=== PATIENT | female | born 1940 | race Caucasian/White ===

== ENCOUNTER 2019-05-06 09:36 | Inpatient (IN) ==
[2019-05-06 10:46] LABS: Basophils % 0.1 %; Hematocrit 38.8 % (35.3-44.9); Hemoglobin 11.9 g/dL (11.5-15.4); Immature Granulocytes % 0.5 % (0-4); Lymphocytes # 0.6 K/mcL (0.6-4.6); Lymphocytes % 2.5 %; Mean Corpuscular HGB Conc 30.7 g/dL (31.6-35.5); Mean Corpuscular Hemoglobin 28.5 pg (28.0-33.3); Mean Platelet Volume 9.4 fL (9.4-12.4); Monocytes # 1.4 K/mcL (0.0-1.3); Monocytes % 6.3 %; Neutrophils # 20.1 K/mcL (1.6-8.9); Platelet Count 258 K/mcL (140-400); Red Blood Count 4.17 M/mcL (3.82-4.97); Red Cell Distribution Width 13.8 % (11.5-14.5); Segmented Neutrophils % 90.6 %; White Blood Count 22.2 K/mcL (4.3-11.1)
[2019-05-06 10:47] LABS: INR 1.4; Prothrombin Time 15.5 Seconds (9.4-12.1)
[2019-05-06 10:49] LABS: Bilirubin,Urine Negative (Negative); Blood,Urine Trace-lysed (Negative); Clarity,Urine Clear (Clear); Color,Urine Yellow (Yellow); Glucose,Urine (UA) Normal (Normal); Ketones,Urine Negative (Negative); Leukocyte Esterase,Urine Small (Negative); Nitrite,Urine Negative (Negative); Protein,Urine 30 mg/dL (Neg-Trace); Specific Gravity,Urine 1.015 (1.010-1.025); Urobilinogen,Urine Normal (Normal)
[2019-05-06 10:50] LABS: Activated Partial Thrombo Time 27.7 Seconds (26.0-36.0)
[2019-05-06] MEDS ORDERED: levoFLOXacin 750 MG TABLET PO ONE (10:51)
[2019-05-06] MEDS ORDERED: Acetaminophen 325 MG TABLET PO ONE (10:52)
[2019-05-06] MEDS ORDERED: Ipratropium/Albuterol Neb 3 ML IH ONE (10:53)
[2019-05-06 11:01] LABS: Hyaline Casts,Urine Many per lpf (None-Few); RBC,Urine 0-3 per hpf (0-3); Squamous Epithelial Cell,Urine Many per lpf (None-Few)
[2019-05-06 11:04] LABS: Calcium 9.5 mg/dL (8.6-10.3); Potassium 4.7 mEq/L (3.5-5.1)
[2019-05-06] MEDS ORDERED: 0.9 % Sodium Chloride 500 ML IVC ONE (11:17)
[2019-05-06 11:49] LABS: VBG HCO3 42 mEq/L (21-27); VBG PCO2 66 mmHg (41-51); VBG PH 7.41 pH Units (7.32-7.42); VBG PO2 47 mmHg (25-50)
[2019-05-06] MEDS ORDERED: Azithromycin 500 MG in D5% in Water 250 ML IVPB ONE ×2 (12:05→12:59)
[2019-05-06] MEDS ORDERED: *HR* Dextrose 50 % in Water (Syg) 50 ML SYRINGE IVP PRN (12:59)
[2019-05-06] MEDS ORDERED: Acetaminophen 325 MG TABLET PO PRN (12:59)
[2019-05-06] MEDS ORDERED: Naloxone 0.4 MG/ML INJ IVP PRN (12:59)
[2019-05-06] MEDS ORDERED: Dextrose Gel 15 GM/37.5 ML TUBE PO PRN ×2 (12:59)
[2019-05-06] MEDS ORDERED: D5% in Water 1,000 ML IVC PRN (12:59)
[2019-05-06] MEDS: Ipratropium/Albuterol Neb 3 ML IH SCH ×3 (16:04→23:59)
[2019-05-06] MEDS: Torsemide 20 MG TABLET PO SCH (17:39)
[2019-05-06] MEDS: Insulin LISPRO 300 UNITS/3 ML VIAL SQ SCH ×2 (17:40→22:13)
[2019-05-06] MEDS ORDERED: Insulin DETEMIR 100 UNIT/ML X5UNITS SQ SCH (21:00)
[2019-05-06] MEDS: Insulin DETEMIR 100 UNIT/ML X5UNITS SQ SCH (22:17)
[2019-05-06] MEDS: Ascorbic Acid 500 MG TABLET PO SCH (22:23)
[2019-05-06] MEDS: Apixaban 5 MG TABLET PO SCH (22:23)
[2019-05-06] MEDS: Latanoprost 2.5 ML BOTTLE BOTH EYES SCH (22:25)
[2019-05-07] MEDS: Ipratropium/Albuterol Neb 3 ML IH SCH ×6 (03:59→23:58)
[2019-05-07 05:25] LABS: Basophils % 0.1 %; Hematocrit 38.2 % (35.3-44.9); Hemoglobin 12.1 g/dL (11.5-15.4); Immature Granulocytes % 0.4 % (0-4); Lymphocytes % 5.5 %; Mean Corpuscular HGB Conc 31.7 g/dL (31.6-35.5); Mean Corpuscular Hemoglobin 29.5 pg (28.0-33.3); Mean Corpuscular Volume 93.2 fL (83.0-100.0); Monocytes # 1.4 K/mcL (0.0-1.3); Monocytes % 7.7 %; Neutrophils # 15.4 K/mcL (1.6-8.9); Platelet Count 223 K/mcL (140-400); Red Cell Distribution Width 13.9 % (11.5-14.5); Segmented Neutrophils % 86.3 %; White Blood Count 17.8 K/mcL (4.3-11.1)
[2019-05-07 05:48] LABS: Calcium 9.1 mg/dL (8.6-10.3); Potassium 4.5 mEq/L (3.5-5.1)
[2019-05-07] MEDS: Insulin LISPRO 300 UNITS/3 ML VIAL SQ SCH ×4 (08:16→22:49)
[2019-05-07] MEDS: Torsemide 20 MG TABLET PO SCH ×2 (08:49→17:23)
[2019-05-07] MEDS: Apixaban 5 MG TABLET PO SCH ×2 (08:49→22:43)
[2019-05-07] MEDS: FLUoxetine 20 MG CAPSULE PO SCH (08:49)
[2019-05-07] MEDS: Ascorbic Acid 500 MG TABLET PO SCH ×2 (08:49→22:42)
[2019-05-07] MEDS: GlipiZIDE 5 MG TABLET PO SCH (08:49)
[2019-05-07] MEDS: Spironolactone 25 MG TABLET PO SCH (08:49)
[2019-05-07] MEDS: cefTRIAXone 1,000 MG in Water for inj. (sterile) 10 ML IVP SCH (08:53)
[2019-05-07] MEDS ORDERED: Azithromycin 250 MG TABLET PO SCH (09:00)
[2019-05-07] MEDS ORDERED: Famotidine 20 MG TABLET PO SCH (09:00)
[2019-05-07] MEDS: Azithromycin 500 MG in 0.9 % Sodium Chloride 250 ML IVPB SCH (09:00)
[2019-05-07 09:36] LABS: Estimated Average Glucose 229 mg/dl
[2019-05-07] MEDS: Insulin DETEMIR 100 UNIT/ML X5UNITS SQ SCH (22:46)
[2019-05-07] MEDS: Latanoprost 2.5 ML BOTTLE BOTH EYES SCH (22:57)
[2019-05-07] MEDS: Melatonin 3 MG TABLET PO SCH (23:55)
[2019-05-08] MEDS: Ipratropium/Albuterol Neb 3 ML IH SCH ×5 (05:09→21:31)
[2019-05-08 05:33] LABS: Basophils % 0.1 %; Hematocrit 35.1 % (35.3-44.9); Hemoglobin 11.2 g/dL (11.5-15.4); Immature Granulocytes % 0.5 % (0-4); Lymphocytes # 0.7 K/mcL (0.6-4.6); Lymphocytes % 4.1 %; Mean Corpuscular HGB Conc 31.9 g/dL (31.6-35.5); Mean Corpuscular Hemoglobin 29.2 pg (28.0-33.3); Mean Corpuscular Volume 91.4 fL (83.0-100.0); Mean Platelet Volume 9.4 fL (9.4-12.4); Monocytes # 1.3 K/mcL (0.0-1.3); Monocytes % 7.7 %; Neutrophils # 14.8 K/mcL (1.6-8.9); Platelet Count 205 K/mcL (140-400); Red Blood Count 3.84 M/mcL (3.82-4.97); Red Cell Distribution Width 14.1 % (11.5-14.5); Segmented Neutrophils % 87.6 %; White Blood Count 16.9 K/mcL (4.3-11.1)
[2019-05-08 05:48] LABS: Calcium 8.8 mg/dL (8.6-10.3)
[2019-05-08] MEDS: Insulin LISPRO 300 UNITS/3 ML VIAL SQ SCH ×4 (08:39→21:00)
[2019-05-08] MEDS: FLUoxetine 20 MG CAPSULE PO SCH (08:43)
[2019-05-08] MEDS: Torsemide 20 MG TABLET PO SCH ×2 (08:43→18:13)
[2019-05-08] MEDS: Famotidine 20 MG TABLET PO SCH (08:44)
[2019-05-08] MEDS: Spironolactone 25 MG TABLET PO SCH (08:44)
[2019-05-08] MEDS: GlipiZIDE 5 MG TABLET PO SCH (08:44)
[2019-05-08] MEDS: Apixaban 5 MG TABLET PO SCH ×2 (08:44→21:29)
[2019-05-08] MEDS: Ascorbic Acid 500 MG TABLET PO SCH ×2 (08:44→21:28)
[2019-05-08] MEDS: cefTRIAXone 1,000 MG in Water for inj. (sterile) 10 ML IVP SCH (08:47)
[2019-05-08] MEDS: Azithromycin 500 MG in 0.9 % Sodium Chloride 250 ML IVPB SCH (08:47)
[2019-05-08] MEDS: Melatonin 3 MG TABLET PO SCH (21:30)
[2019-05-08] MEDS: Insulin DETEMIR 100 UNIT/ML X5UNITS SQ SCH (21:31)
[2019-05-08] MEDS: Latanoprost 2.5 ML BOTTLE BOTH EYES SCH (21:32)
[2019-05-09] MEDS: Ipratropium/Albuterol Neb 3 ML IH SCH ×4 (01:09→11:26)
[2019-05-09] MEDS: Azithromycin 500 MG in 0.9 % Sodium Chloride 250 ML IVPB SCH (09:51)
[2019-05-09] MEDS: Spironolactone 25 MG TABLET PO SCH (09:52)
[2019-05-09] MEDS: Torsemide 20 MG TABLET PO SCH (09:52)
[2019-05-09] MEDS: Apixaban 5 MG TABLET PO SCH (09:52)
[2019-05-09] MEDS: Famotidine 20 MG TABLET PO SCH (09:52)
[2019-05-09] MEDS: Ascorbic Acid 500 MG TABLET PO SCH (09:52)
[2019-05-09] MEDS: cefTRIAXone 1,000 MG in Water for inj. (sterile) 10 ML IVP SCH (09:52)
[2019-05-09] MEDS: GlipiZIDE 5 MG TABLET PO SCH (09:53)
[2019-05-09] MEDS: Insulin LISPRO 300 UNITS/3 ML VIAL SQ SCH ×2 (09:53→12:06)
[2019-05-09] MEDS: FLUoxetine 20 MG CAPSULE PO SCH (09:53)
[2019-05-09] MEDS ORDERED: Insulin DETEMIR 100 UNIT/ML per UNIT SQ ONE (11:30)
[2019-05-09 13:12] VITALS: BP 145/78
[2019-05-09] MEDS ORDERED: Ipratropium/Albuterol Neb 3 ML ONE (16:32)
[2019-05-10] MEDS ORDERED: Insulin DETEMIR 100 UNIT/ML X5UNITS SQ SCH (09:00)
== END 2019-05-09 14:40 | disposition other institution (70) | DRG 194 ==
LOC: EMEROOGRE 09:36 → INPGRE 12:35
PROVIDERS: ADMIT Family Medicine; ATTEND Family Medicine

== ENCOUNTER 2019-05-09 11:58 | Inpatient (IN) ==
[2019-05-09] MEDS ORDERED: Naloxone 0.4 MG/ML INJ IVP PRN (15:55)
[2019-05-09] MEDS ORDERED: *HR* Dextrose 50 % in Water (Vial) 50 ML VIAL IVP PRN (15:57)
[2019-05-09] MEDS ORDERED: Dextrose Gel 15 GM/37.5 ML TUBE PO PRN ×2 (15:57)
[2019-05-09] MEDS ORDERED: D5% in Water 1,000 ML IVC PRN (15:57)
[2019-05-09] MEDS: Ipratropium/Albuterol Neb 3 ML IH SCH ×2 (16:34→20:45)
[2019-05-09] MEDS: Insulin LISPRO 300 UNITS/3 ML VIAL SQ SCH ×2 (16:43→21:17)
[2019-05-09] MEDS: Torsemide 20 MG TABLET PO SCH (17:21)
[2019-05-09] MEDS: Ascorbic Acid 500 MG TABLET PO SCH (17:21)
[2019-05-09] MEDS ORDERED: Insulin DETEMIR 100 UNIT/ML per UNIT SQ ONE (21:00)
[2019-05-09] MEDS: Apixaban 5 MG TABLET PO SCH (21:15)
[2019-05-09] MEDS: Melatonin 3 MG TABLET PO SCH (21:15)
[2019-05-09] MEDS: Latanoprost 2.5 ML BOTTLE BOTH EYES SCH (21:18)
[2019-05-09] MEDS: EZETIMIBE 10 MG PO SCH (21:18)
[2019-05-10] MEDS: Ipratropium/Albuterol Neb 3 ML IH SCH ×6 (00:16→20:16)
[2019-05-10 06:01] LABS: Hematocrit 37.9 % (35.3-44.9); Hemoglobin 11.8 g/dL (11.5-15.4); Mean Corpuscular HGB Conc 31.1 g/dL (31.6-35.5); Mean Corpuscular Hemoglobin 28.7 pg (28.0-33.3); Mean Corpuscular Volume 92.2 fL (83.0-100.0); Mean Platelet Volume 9.4 fL (9.4-12.4); Platelet Count 101 K/mcL (140-400); Red Blood Count 4.11 M/mcL (3.82-4.97); Red Cell Distribution Width 13.6 % (11.5-14.5); White Blood Count 14.3 K/mcL (4.3-11.1)
[2019-05-10 06:29] LABS: Calcium 8.5 mg/dL (8.6-10.3); Potassium 4.8 mEq/L (3.5-5.1)
[2019-05-10] MEDS: Spironolactone 25 MG TABLET PO SCH (08:48)
[2019-05-10] MEDS: Famotidine 20 MG TABLET PO SCH (08:48)
[2019-05-10] MEDS: FLUoxetine 20 MG CAPSULE PO SCH (08:48)
[2019-05-10] MEDS: Ascorbic Acid 500 MG TABLET PO SCH ×2 (08:49→17:19)
[2019-05-10] MEDS: Apixaban 5 MG TABLET PO SCH ×2 (08:49→21:53)
[2019-05-10] MEDS: Torsemide 20 MG TABLET PO SCH ×2 (08:49→17:19)
[2019-05-10] MEDS: cefTRIAXone 1,000 MG in Water for inj. (sterile) 10 ML IVP SCH (08:50)
[2019-05-10] MEDS: Insulin LISPRO 300 UNITS/3 ML VIAL SQ SCH ×4 (08:53→22:00)
[2019-05-10] MEDS: Azithromycin 500 MG in 0.9 % Sodium Chloride 250 ML IVPB SCH (09:11)
[2019-05-10] MEDS: Insulin DETEMIR 100 UNIT/ML X5UNITS SQ SCH ×2 (09:12→22:00)
[2019-05-10] MEDS: Melatonin 3 MG TABLET PO SCH (21:54)
[2019-05-10] MEDS: Latanoprost 2.5 ML BOTTLE BOTH EYES SCH (21:57)
[2019-05-10] MEDS: EZETIMIBE 10 MG PO SCH (21:58)
[2019-05-11] MEDS: Ipratropium/Albuterol Neb 3 ML IH SCH ×6 (00:16→20:45)
[2019-05-11] MEDS: Insulin LISPRO 300 UNITS/3 ML VIAL SQ SCH ×4 (09:10→20:49)
[2019-05-11] MEDS: cefTRIAXone 1,000 MG in Water for inj. (sterile) 10 ML IVP SCH (09:11)
[2019-05-11] MEDS: Azithromycin 500 MG in 0.9 % Sodium Chloride 250 ML IVPB SCH (09:12)
[2019-05-11] MEDS: Apixaban 5 MG TABLET PO SCH ×2 (09:19→20:45)
[2019-05-11] MEDS: Torsemide 20 MG TABLET PO SCH ×2 (09:19→18:12)
[2019-05-11] MEDS: FLUoxetine 20 MG CAPSULE PO SCH (09:19)
[2019-05-11] MEDS: Famotidine 20 MG TABLET PO SCH (09:20)
[2019-05-11] MEDS: Ascorbic Acid 500 MG TABLET PO SCH ×2 (09:20→18:12)
[2019-05-11] MEDS: Spironolactone 25 MG TABLET PO SCH (09:20)
[2019-05-11] MEDS: Insulin DETEMIR 100 UNIT/ML X5UNITS SQ SCH ×2 (11:50→20:50)
[2019-05-11 13:32] LABS: Calcium 8.8 mg/dL (8.6-10.3); Magnesium 2.1 mg/dL (1.6-2.6); Potassium 3.8 mEq/L (3.5-5.1)
[2019-05-11] MEDS: Melatonin 3 MG TABLET PO SCH (20:45)
[2019-05-11] MEDS: EZETIMIBE 10 MG PO SCH (20:50)
[2019-05-11] MEDS: Latanoprost 2.5 ML BOTTLE BOTH EYES SCH (20:50)
[2019-05-12] MEDS: Ipratropium/Albuterol Neb 3 ML IH SCH ×4 (00:52→11:18)
[2019-05-12] MEDS: Insulin LISPRO 300 UNITS/3 ML VIAL SQ SCH ×2 (07:38→13:03)
[2019-05-12 07:50] VITALS: BP 137/79
[2019-05-12] MEDS: Torsemide 20 MG TABLET PO SCH (09:54)
[2019-05-12] MEDS: FLUoxetine 20 MG CAPSULE PO SCH (09:54)
[2019-05-12] MEDS: Famotidine 20 MG TABLET PO SCH (09:54)
[2019-05-12] MEDS: Ascorbic Acid 500 MG TABLET PO SCH (09:54)
[2019-05-12] MEDS: Spironolactone 25 MG TABLET PO SCH (09:54)
[2019-05-12] MEDS: Apixaban 5 MG TABLET PO SCH (09:55)
[2019-05-12] MEDS: cefTRIAXone 1,000 MG in Water for inj. (sterile) 10 ML IVP SCH (09:58)
[2019-05-12] MEDS: Azithromycin 500 MG in 0.9 % Sodium Chloride 250 ML IVPB SCH (09:59)
[2019-05-12] MEDS: Insulin DETEMIR 100 UNIT/ML X5UNITS SQ SCH (10:08)
== END 2019-05-12 15:54 | disposition home health service (06) | DRG 194 ==
LOC: INPGRE 14:44
PROVIDERS: ADMIT Family Medicine; ATTEND Family Medicine